=== PATIENT | male | born 1985 | race Caucasian/White ===

== ENCOUNTER → 2025-05-18 | Day surgery (SDC) | payer OTHER ==
[~2025-05-18] MED LIST: ACETAMINOPHEN 1000 MG/100 ML 100 ML IV ONE; DEXAMETHASONE SOD PHOS INJ 4 MG/ML SDV ONE; FENTANYL CITRATE/PF 100MCG/2 ML INJ ONE; LIDOCAINE HCL 2% LOCAL INJ 5 ML SDV VIAL INJ ONE; MIDAZOLAM HCL 2 MG/2 ML VIAL ONE; ONDANSETRON HCL INJ 2MG/ML 2ML 2 MG/ML VIAL ONE; PROPOFOL IV EMULSION 10 MG/ML 20 ML VIAL ONE; ROCURONIUM BROMIDE 1 ML IV ONE; SUGAMMADEX SODIUM 200 MG/2 ML VIAL IV ONE
[2025-05-18] MEDS: LACTATED RINGER'S 1,000 ML ONE (08:01)
[2025-05-18 12:40] VITALS: BP 122/78; PULSE 60; RESP 16; O2SAT 99
== END | disposition home or self-care (01) ==
LOC: OR 07:10
PROVIDERS: ATTEND Otolaryngology Otolaryngology/Facial Plastic Surgery
DX: E06.3 Autoimmune thyroiditis (principal); Z01.810 Encounter for preprocedural cardiovascular examination
CPT/HCPCS: 60220; 88307; 93005; J0131; J1100; J2003; J2250; J2405; J2704; J3010; J7121